=== PATIENT | female | born 1990 | race Caucasian/White ===

== ENCOUNTER 2018-12-06 06:09 | Emergency (ER) | payer SELFPAY ==
[2018-12-06] MEDS ORDERED: LORazepam TAB(*) 1 MG PO ONE (06:40)
[2018-12-06 07:11] LABS: ABS Lymphocytes 2.4 10^3/ul (1.0-4.8); ABS Monocytes 0.9 10^3/ul (0-0.8); ABS Neutrophils 8.1 10^3/ul (1.5-7.7); Eosinophil % 0.3 %; Hematocrit 43 % (35-47); Hemoglobin 14.3 g/dL (12.0-16.0); Lymphocyte % 20.6 %; Mean Corpuscular HGB Conc 34 g/dL (31-36); Mean Corpuscular Hemoglobin 32 pg (27-31); Mean Corpuscular Volume 95 fL (80-97); Mean Platelet Volume 7.6 fL (7.4-10.4); Platelet Count 246 10^3/uL (150-450); Red Blood Count 4.48 10^6 /uL (3.70-4.87); Red Cell Distribution Width 12 % (10.5-15); White Blood Count 11.4 10^3/uL (3.5-10.8)
--- NOTE | 2018-12-06 07:13 | ED ---
Psychiatric Complaint - HPI Summary HPI Summary: Patient is a 28-year-old female presenting to the ED with a variety of complaints. She states she has been camping with her family and a lot of emotions have come out and she is been unable to sleep the last few days. She states she does not want anything for anxiety or sleep, but she was unable to sleep for the past few days and has been attempting this evening to sleep in the car and decided to come to the ED instead. She is also endorsing feeling "dehydrated." She endorses is feeling despite having no nausea, vomiting or diarrhea. She is requesting labs and fluids as well as a pelvic examination. Upon asking why she would want the pelvic examination, she states she has been having some vaginal discharge times proximally 7 months since having her IUD placed. She denies any abdominal pain. She does endorse some back pain, but she is unable to pinpoint with the back pain is located. Back pain began approximately 2 days ago, but she states this is not due to her attempting to sleep in a tent. She denies any urinary symptoms. Denies any fevers, sweats, chills. - History Of Current Complaint Chief Complaint: EDNauseaVomitDiarrh Time Seen by Provider: 12/06/18 06:11 Hx Obtained From: Patient ?: No Onset/Duration: Sudden Onset Timing: Constant Severity Initially: Mild Severity Currently: Mild Aggravating Factor(s): Recent Stress Alleviating Factor(s): Nothing Associated Signs And Symptoms: Positive: Negative - Risk Factor(s) Completed Suicide Risk Factors: Negative - Allergies/Home Medications Allergies/Adverse Reactions: Allergies Allergy/AdvReac Type Severity Reaction Status Date / Time No Known Allergies Allergy Verified 12/06/18 06:35 Home Medications: Home Medications DULoxetine DR CAP* [Cymbalta CAP*] 60 mg PO DAILY 12/06/18 [History Confirmed ] PMH/Surg Hx/FS Hx/Imm Hx Previously Healthy: Yes - Immunization History Hx Pertussis Vaccination: No Immunizations Up to Date: Yes Infectious Disease History: No Infectious Disease History: Denies: Traveled Outside the [place] in Last 30 Days - Social History Occupation: Unemployed Lives: With Family Alcohol Use: None Hx Substance Use: No Substance Use Type: Reports: None Smoking Status (MU): Never Smoked Tobacco Review of Systems Constitutional: Negative Negative: Fever, Chills, Fatigue, Skin Diaphoresis Negative: Palpitations, Chest Pain Negative: Shortness Of Breath, Cough Negative: Abdominal Pain, Vomiting, Diarrhea, Nausea Genitourinary: Negative Positive: no symptoms reported, see HPI Negative: Arthralgia, Myalgia Skin: Negative Positive: Anxious All Other Systems Reviewed And Are Negative: Yes Physical Exam Triage Information Reviewed: Yes Vital Signs On Initial Exam: Initial Vitals Temp Pulse Resp BP Pulse Ox 98.2 F 98 18 135/100 100 12/06/18 06:15 12/06/18 06:15 12/06/18 06:15 12/06/18 06:15 12/06/18 06:15 Vital Signs Reviewed: Yes Appearance: Positive: Well-Appearing, Well-Nourished Skin: Positive: Warm, Skin Color Reflects Adequate Perfusion Head/Face: Positive: Normal Head/Face Inspection Eyes: Positive: EOMI, Conjunctiva Clear Neck: Positive: Supple, No Lymphadenopathy Respiratory/Lung Sounds: Positive: Clear to Auscultation Cardiovascular: Positive: RRR, Pulses are Symmetrical in both Upper and Lower Extremities Musculoskeletal: Positive: Strength/ROM Intact Neurological: Positive: Speech Normal Psychiatric: Positive: Anxious AVPU Assessment: Alert Diagnostics - Vital Signs Vital Signs Temp Pulse Resp BP Pulse Ox 12/06/18 07:00 18 12/06/18 06:45 98 146/107 100 12/06/18 06:15 98.2 F 82 18 135/100 97 - Laboratory Result Diagrams: 12/06/18 06:58 12/06/18 06:58 Lab Statement: Any lab studies that have been ordered have been reviewed, and results considered in the medical decision making process. Course/Dx - Course Course Of Treatment: On arrival into the ED, patient's vital signs are stable. Patient is nontoxic in appearing. Patient offers a variety of complaints. On physical examination, lungs CTA, RRR. Patient appears anxious. UA obtained and discussed with the patient and there are no clear findings for her to receive fluids this time. She is also requesting a pelvic examination, however I believe this is best served through her NURSE RECRUITER as this is not an emergent/ urgent situation. No vaginal bleeding. Labs obtained. All WNL. Patient is given 1mg ativan and states felt no relief. She does not want to try a different medication at this time for insomnia/anxiety. Patient states she is ready for discharge at this time and offers no other complaints. - Differential Dx/Clinical Impression Differential Diagnosis/HQI/PQRI: Positive: Anxiety, Depression Provider Diagnosis: Anxiety Discharge - Sign-Out/Discharge Documenting (check all that apply): Patient Departure Patient Received Moderate/Deep Sedation with Procedure: No - Discharge Plan Condition: Stable Disposition: HOME Patient Education Materials: Anxiety (ED) Referrals: No Primary Care Phys,NOPCP [Primary Care Provider] - Additional Instructions: Please follow up with your counselor Try to get sleep today - Billing Disposition and Condition Condition: STABLE Disposition: Home
[2018-12-06 07:18] LABS: Urine Appearance Clear; Urine Bacteria Absent (Absent); Urine Bilirubin Negative (Negative); Urine Blood 1+ (Negative); Urine Color Yellow; Urine Glucose Negative (Negative); Urine Ketones Negative (Negative); Urine Nitrite Negative (Negative); Urine Protein Negative (Negative); Urine Red Blood Cell Absent (Absent); Urine Specific Gravity 1.004 (1.010-1.030); Urine Squamous Epithelial Cell Present (Absent); Urine Urobilinogen Negative (Negative); Urine White Blood Cell Trace(0-5/hpf) (Absent)
[2018-12-06 07:22] LABS: Albumin/Globulin Ratio 1.6 (1-3); BUN/Creatinine Ratio 16.4 (8-20); Calcium 10.1 mg/dL (8.6-10.3); EGFR African American 161.7 (>60); EGFR Non-African American 133.6 (>60); Globulin 3.2 g/dL (2-4); Potassium 4.3 mmol/L (3.5-5.0); Total Bilirubin 0.7 mg/dL (0.2-1.0); Total Protein 8.2 g/dL (6.4-8.9)
[2018-12-06 08:55] VITALS: BP 118/64
== END 2018-12-06 08:53 | disposition home or self-care (01) ==
LOC: ED 06:09
DX: F41.9 Anxiety disorder, unspecified (principal)
CPT/HCPCS: 36415; 80053; 81003; 81015; 85025; 87086; 99282; A9270-GY